=== PATIENT | female | born 2000 | race Caucasian/White ===

== ENCOUNTER → 2020-12-19 | Outpatient (CLI) | payer OTHER ==
--- NOTE | 2020-12-19 11:59 | RAD ---
Os calcis 2 views, HISTORY: right heel pain 2 views were taken of the calcaneus. There is no fracture or bony destructive process or acute osseou s abnormality. IMPRESSION: 1. Negative calcaneus. Electronically signed by: Emiliano Saldivar MD (12/19/2020 11:57 AM) [facility]
== END ==
LOC: PMG 11:39
PROVIDERS: ATTEND Physician Assistant
DX: M76.61 Achilles tendinitis, right leg (principal)
CPT/HCPCS: 73650